=== PATIENT | male | born 1960 | race Caucasian/White ===

== ENCOUNTER 2024-08-29 06:00 | Outpatient (RCR) | payer OTHER, SELFPAY | END 2024-09-16 23:59 | disposition home or self-care (01) | LOC: MPT 06:00 | PROVIDERS: Visit Provider Physician Assistant | DX: M54.42 Lumbago with sciatica, left side (principal); M54.41 Lumbago with sciatica, right side; G89.29 Other chronic pain | CPT/HCPCS: 97110; 97140; 97162 ==

== ENCOUNTER 2024-10-05 11:36 | Outpatient (RCR) | payer OTHER, SELFPAY | END 2024-10-14 23:59 | disposition home or self-care (01) | LOC: MPT 11:36 | PROVIDERS: Visit Provider Physician Assistant | DX: M54.42 Lumbago with sciatica, left side (principal); M54.41 Lumbago with sciatica, right side; G89.29 Other chronic pain | CPT/HCPCS: 97110; 97140; G0283 ==

== ENCOUNTER 2024-10-15 06:00 | Outpatient (RCR) | payer OTHER, SELFPAY | END 2024-11-14 23:59 | disposition home or self-care (01) | LOC: MPT 06:00 | PROVIDERS: PCP Physician Assistant; Visit Provider Physician Assistant | DX: M54.42 Lumbago with sciatica, left side (principal); M54.41 Lumbago with sciatica, right side | CPT/HCPCS: 97110; G0283 ==

== ENCOUNTER → 2024-10-26 08:38 | Outpatient (BNVA) | payer OTHER, SELFPAY | PROVIDERS: PCP Physician Assistant; Visit Provider Podiatrist Foot & Ankle Surgery | DX: M79.671 Pain in right foot (principal); M79.672 Pain in left foot; M72.2 Plantar fascial fibromatosis | CPT/HCPCS: 73630 ==

== ENCOUNTER 2024-11-15 06:00 | Outpatient (RCR) | payer OTHER, SELFPAY | END 2024-12-14 23:59 | disposition home or self-care (01) | LOC: MPT 06:00 | PROVIDERS: PCP Physician Assistant; Visit Provider Physician Assistant | DX: M54.42 Lumbago with sciatica, left side (principal); M54.41 Lumbago with sciatica, right side; G89.29 Other chronic pain; M72.2 Plantar fascial fibromatosis | CPT/HCPCS: 97110; G0283 ==